=== PATIENT | male | born 1980 | race African-American/Black ===

== ENCOUNTER 2016-12-03 20:20 | Emergency (ER) | payer SELFPAY ==
[~2016-12-03] VITALS: Ht 195.6 cm; Wt 70.6 kg
[2016-12-03 21:17] LABS: HEMATOCRIT 41.2 % (39.0-50.0); HEMOGLOBIN 13.4 g/dl (14.0-18.0); IMMATURE GRANULOCYTES 0.2 % (0.0-1.0); MEAN CELL VOLUME 94.5 fL CALC (80.0-100.0); MEAN CORPUSCULAR HGB 30.7 pG CALC (26.0-32.0); MEAN CORPUSCULAR HGB CONC 32.5 g/L CALC (32.0-36.0); NEUT# 3.41 thou/uL (1.82-7.42); RED BLOOD COUNT 4.36 mill/uL (4.70-6.10); RED CELL DISTRI WIDTH 12.8 % (11.5-15.5)
[2016-12-03 21:18] LABS: URINE BILIRUBIN - DIPSTICK NEGATIVE (NEGATIVE); URINE BLOOD DIPSTICK NEGATIVE (NEGATIVE); URINE CLARITY CLEAR; URINE COLOR YELLOW; URINE GLUCOSE - DIPSTICK NEGATIVE (NEGATIVE); URINE KETONE TRACE mg/dL (NEGATIVE); URINE LEUK ESTERASE NEGATIVE (NEGATIVE); URINE NITRITE - DIPSTICK NEGATIVE (Negative); URINE PH 5.5 (4.5-8.0); URINE PROTEIN - DIPSTICK NEGATIVE (NEG-TRACE); URINE SPECIFIC GRAVITY >=1.030
[2016-12-03 21:22] LABS: BARBITURATES NEGATIVE (NEGATIVE); COCAINE POSITIVE (NEGATIVE); METHADONE NEGATIVE (NEGATIVE); TETRAHYDROCANNABIONOL POSITIVE (NEGATIVE); TRICYLIC ANTIDEPRESSANTS NEGATIVE (NEGATIVE)
[2016-12-03 21:23] LABS: OXCYCODONE NEGATIVE (NEGATIVE)
[2016-12-03 21:35] LABS: ALBUMIN 4.1 g/dL (3.2-5.0); ALKALINE PHOSPHATASE 99 u/l (38-126); ANION GAP 12 (6-22 (CALC)); BILIRUBIN, TOTAL 0.6 mg/dL (0.0-1.4); BUN 16 mg/dL (9-20); BUN/CREATININE RATIO 14 (12-20 (CALC)); CALCIUM 9.3 mg/dL (8.4-10.2); CARBON DIOXIDE 27 mmol/l (22-30); CHLORIDE 107 mmol/l (95-108); CREATININE 1.2 mg/dL (0.7-1.3); ETHYL ALCOHOL 0 mg/dl (0-30); GFR > 60 ML/MIN (>=60 (CALC)); GFR FOR AFR.AMER. > 60 ML/MIN (>=60 (CALC)); GLUCOSE 119 mg/dL (75-110); POTASSIUM 4.4 mmol/l (3.5-5.1); SGOT/AST 21 u/l (17-59); SGPT/ALT 30 u/l (21-72); SODIUM 141 mmol/l (137-146); TOTAL PROTEIN 7.3 g/dL (6.3-8.2)
[2016-12-03 21:46] LABS: MYOGLOBIN 29 ng/mL (0 - 121)
[2016-12-03 23:08] VITALS: BP 109/54
== END 2016-12-03 23:08 | disposition home or self-care (01) | DRG 312 ==
LOC: ED 20:20
PROVIDERS: Emergency Medicine
DX: R55 Syncope and collapse (principal); F12.90 Cannabis use, unspecified, uncomplicated; F14.90 Cocaine use, unspecified, uncomplicated; K64.9 Unspecified hemorrhoids

== ENCOUNTER 2017-11-13 17:23 | Emergency (ER) | payer SELFPAY ==
[~2017-11-13] VITALS: Ht 195.6 cm; Wt 77.2 kg
[2017-11-13] MEDS ORDERED: MOTRIN800 MG PO (18:05)
[2017-11-13] MEDS ORDERED: BACTRIM DS1 TAB PO (18:05)
[2017-11-13 18:15] VITALS: BP 124/76
== END 2017-11-13 18:17 | disposition home or self-care (01) | DRG 603 ==
LOC: ED 17:23
PROC: 0X940ZX Drainage of Right Axilla, Open Approach, Diagnostic (ICD-10-PCS; principal; 2017-11-13)
DX: L02.411 Cutaneous abscess of right axilla (principal); F17.210 Nicotine dependence, cigarettes, uncomplicated

== ENCOUNTER 2017-11-16 14:43 | Emergency (ER) | payer SELFPAY ==
[~2017-11-16] VITALS: Ht 195.6 cm; Wt 78.0 kg
[~2017-11-16 14:43] MED LIST: BACTRIM DS1 TAB PO; MOTRIN800 MG PO
[2017-11-16 15:20] VITALS: BP 116/74
== END 2017-11-16 15:20 | disposition home or self-care (01) | DRG 951 ==
LOC: ED 14:43
DX: Z48.01 Encounter for change or removal of surgical wound dressing (principal); F17.210 Nicotine dependence, cigarettes, uncomplicated

== ENCOUNTER 2017-11-18 18:24 | Emergency (ER) | payer SELFPAY ==
[~2017-11-18] VITALS: Ht 195.6 cm; Wt 77.3 kg
[2017-11-18 19:30] VITALS: BP 119/82
== END 2017-11-18 19:30 | disposition home or self-care (01) | DRG 951 ==
LOC: ED 18:24
DX: Z48.01 Encounter for change or removal of surgical wound dressing (principal)

== ENCOUNTER 2017-11-21 20:11 | Emergency (ER) | payer SELFPAY ==
[~2017-11-21] VITALS: Ht 195.6 cm; Wt 77.3 kg
[2017-11-21 20:48] VITALS: BP 117/74
== END 2017-11-21 20:48 | disposition home or self-care (01) | DRG 951 ==
LOC: ED 20:11
DX: Z48.01 Encounter for change or removal of surgical wound dressing (principal); F17.210 Nicotine dependence, cigarettes, uncomplicated

== ENCOUNTER 2018-06-15 19:47 | Emergency (ER) | payer SELFPAY ==
[~2018-06-15] VITALS: Ht 195.6 cm; Wt 77.0 kg
[2018-06-15] MEDS ORDERED: MOTRIN400 MG PO (21:56)
[2018-06-15 22:13] VITALS: BP 128/78
== END 2018-06-15 22:13 | disposition home or self-care (01) | DRG 605 ==
LOC: ED 19:47
DX: S00.83XA Contusion of other part of head, initial encounter (principal); S00.11XA Contusion of right eyelid and periocular area, initial encounter; S00.411A Abrasion of right ear, initial encounter; F17.210 Nicotine dependence, cigarettes, uncomplicated; Y00.XXXA Assault by blunt object, initial encounter

== ENCOUNTER 2018-12-03 19:58 | Emergency (ER) | payer OTHER ==
[~2018-12-03] VITALS: Ht 170.2 cm; Wt 75.0 kg
[~2018-12-03 19:58] MED LIST changes: +MOTRIN400 MG PO
[2018-12-03 21:00] VITALS: BP 136/77
== END 2018-12-03 21:24 | disposition home or self-care (01) | DRG 552 ==
LOC: ED 19:58
DX: S16.1XXA Strain of muscle, fascia and tendon at neck level, initial encounter (principal); F17.210 Nicotine dependence, cigarettes, uncomplicated; V49.50XA Passenger injured in collision with unspecified motor vehicles in traffic accident, initial encounter

== ENCOUNTER 2023-12-09 15:12 | Emergency (ER) | payer SELFPAY ==
[2023-12-09] VITALS (7 sets, daily range): BP systolic 105–138; BP diastolic 64–87
[~2023-12-09] VITALS: Ht 170.2 cm; Wt 74.8 kg
[2023-12-09] MEDS ORDERED: LIDOcaine HCl 1% (Local Anesth.) 20 ML VIAL STI STA (15:23)
[2023-12-09] MEDS ORDERED: Diph, Acellular Pertussis, Tet 0.5 ML/VIAL (Tdap) SDV IM ONE (15:25)
== END 2023-12-09 16:49 | disposition home or self-care (01) | DRG 605 ==
LOC: ED 15:12
PROC: 0HQFXZZ Repair Right Hand Skin, External Approach (ICD-10-PCS; principal; 2023-12-09)
DX: S61.411A Laceration without foreign body of right hand, initial encounter (principal); F17.200 Nicotine dependence, unspecified, uncomplicated; W26.8XXA Contact with other sharp object(s), not elsewhere classified, initial encounter; Y92.009 Unspecified place in unspecified non-institutional (private) residence as the place of occurrence of the external cause